=== PATIENT | male | born 1955 | race Caucasian/White ===

== ENCOUNTER 2020-10-25 19:07 | Emergency (ER) | payer BC ==
[~2020-10-25] VITALS: Ht 177.8 cm; Wt 81.6 kg
[~2020-10-25 19:07] MED LIST: ATOR10TA PO; CLON0.5T PO; MIRT-91 PO
[2020-10-25 19:09] VITALS: BP 139/88
--- NOTE | 2020-10-25 19:13 | NUR ---
TO ED LOBBY PENDING BED IN ED. DENIES SI/HI.
[2020-10-25] MEDS ORDERED: LORazepam 1 MG TAB PO ONE (19:30)
[2020-10-25] MEDS ORDERED: ATA25 PO (19:36)
[2020-10-25 19:50] VITALS: BP 139/88
== END 2020-10-25 20:00 | disposition home or self-care (01) ==
LOC: MED 19:07
DX: F41.9 Anxiety disorder, unspecified (principal); I51.9 Heart disease, unspecified; Z88.0 Allergy status to penicillin
CPT/HCPCS: 99283